=== PATIENT | male | born 2005 ===

== ENCOUNTER 2024-05-29 13:23 | Observation (INO) | payer OTHER ==
[~2024-05-29] VITALS: Ht 170.2 cm; Wt 72.5 kg
[2024-05-29] VITALS (7 sets, daily range): BP systolic 109–127; BP diastolic 65–73; PULSE 78–99; TEMP 97.9–99.4
[2024-05-29] MEDS ORDERED: Docusate Sodium 100 MG CAP PO PRN (13:30)
[2024-05-29] MEDS ORDERED: Ondansetron 4 MG/2 ML VIAL IV PRN (13:30)
[2024-05-29] MEDS ORDERED: Acetaminophen 325 MG TAB PO PRN (13:30)
[2024-05-29] MEDS ORDERED: Polyethylene Glycol 3350 17 GM PDS PO PRN (13:30)
[2024-05-29] MEDS ORDERED: LR 1,000 ML IV SCH ×2 (13:30→18:00)
--- NOTE | 2024-05-29 13:40 | NUR ---
1003-RECEIVED A CALL FROM DR. YEUNG AT [facility] REQUESTING TRANSFER FOR PATIENT D/T ABDOMINAL PAIN AND REPORTED HEMATEMESIS. CALL TRANSFERRED TO DR. KYLAH POLO WHO ACCEPTS PATIENT FOR OBSERVATION STATUS. PT. WILL COME VIA EMS.
[2024-05-30 01:00] VITALS: BP_SYST 120
[2024-05-30 03:55] VITALS: BP 111/68; PULSE 72; TEMP 98.1
[2024-05-30 05:04] VITALS: BP_SYST 111
[2024-05-30 06:57] LABS: BASO % 0.4 % (0.0-2.0); EOS # 0.1 K/mm3 (0.0-0.7); EOS % 1.2 % (0.0-4.0); GRAN # 4.7 K/mm3 (1.4-6.5); HEMATOCRIT 41.7 % (42.0-52.0); HEMOGLOBIN 14.5 g/dl (13.5-18.0); LYMPH % 15.2 % (20.0-51.0); MEAN CELL VOLUME 90 fl (80.0-100.0); MEAN CORPUSCULAR HEMOGLOBIN 31 pg (27-31); MEAN CORPUSCULAR HGB CONC 35 g/dl (33.0-37.0); MEAN PLATELET VOLUME 8.8 fl (7.4-10.4); MONO # 0.9 K/mm3 (0.1-0.6); MONO % 12.9 % (1.7-9.3); PLATELET COUNT 276 K/mm3 (130-400); RED BLOOD COUNT 4.65 M/mm3 (4.20-5.60); REDCELL DISTRIBUTION WIDTH-CV 12.6 % (11.5-14.5)
[2024-05-30 07:15] LABS: CALCIUM 8.5 mg/dL (8.4-10.2); CREATININE, serum 0.8 mg/dL (0.72-1.25); POTASSIUM 3.8 mEq/L (3.5-4.5)
[2024-05-30 07:17] VITALS: BP 94/54; PULSE 67; TEMP 98.5
[2024-05-30 08:49] VITALS: BP_SYST 94
--- NOTE | 2024-05-30 08:53 | NUR ---
Patient resting in bed, alert and oriented x 4, VSS. Denies any new episode of vomiting since yesterday at 5 am. Assessment completed, getting LR per orders. Awared of need for a GI panel. No further needs at this time. Call ligth within reach.
[2024-05-30 08:54] VITALS: BP 114/69
--- NOTE | 2024-05-30 10:33 | NUR ---
Initial visit; Patient from [place] and is in the . [employer] thanked Royer for his service. Royer states he is not caodaism but is fine with [employer] visiting and wishing him well. He said she may keep him in her prayers as well.
--- NOTE | 2024-05-30 10:54 | NUR ---
Patient was provided with discharge information, all questions answered. IV access was discontinued.
--- NOTE | 2024-05-30 11:32 | NUR ---
family day care worker met with patient to discuss discharge planning. Patient lives on [place] [place] and is currently in the [employer]. Patient listed his friend, Madan Valadez as his emergency contact, P# [phone]. PCP is [facility] and Pharmacy is [facility] pharmacy. No issues affording medications. Insurance is [employer]. No DPOA-HC not interested in completing one. No DME, patient reports to be independent with [facility]. Patient has a form of transportation to get to and from appointments. Patient would like to return home at time of discharge. SW was notified patient is medically ready for discharge and his friend will be coming to pick him up today. Discharge plan: Home
== END 2024-05-30 11:51 | disposition home or self-care (01) ==
LOC: MEDICAL 13:23
PROVIDERS: ADMIT Internal Medicine
DX: R19.7 Diarrhea, unspecified (principal); K92.0 Hematemesis
CPT/HCPCS: G0378; G0379; J7120